=== PATIENT | male | born 1970 | race Caucasian/White ===

== ENCOUNTER 2019-12-15 07:03 | Inpatient (IN) | payer BC, OTHER ==
--- NOTE | 2019-12-15 07:23 | PDOC ---
History of Present Illness - General Chief Complaint: Chest Pain Stated Complaint: CHEST PAIN Time Seen by Provider: 12/15/19 07:20 - History of Present Illness Initial Comments: 12/15/19 07:20 49yo M hx HTN, gastric bypass presents to the ED after fall 6:30am this morning. Got out of bed, was looking for watch. Became lightheaded, things went dark, and he fell over to the side onto the bed. Denies injuries. Was confused for a few seconds afterwards but then back to baseline. Denies LOC. + epsigastric burning for weeks now and chest pressure since yesterday morning. Chest pressure started while he was at rest. Episodes of chest pressure last 3- 4 mins at a time and worse with exertion. Also reporting NB diarrhea for last 2 days with nausea. Reports 3-4 years ago had an abnormal nuclear stress test and got a cath at [facility] which was reportedly normal. Pt denies associated SOB, diaphoresis, headache, focal weakness/numbness, vomiting. No recent travel or immobility. Pt recently moved to the area, previously lived in [place]. Has no doctors in the area. DEnies smoking or drug use. Denies hx similar sxs. 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 Past History - Past Medical History Allergies/Adverse Reactions: Allergies Allergy/AdvReac Type Severity Reaction Status Date / Time No Known Allergies Allergy Verified 12/15/19 07:55 Home Medications: Ambulatory Orders Diltiazem HCl [Diltiazem 24Hr Cd] 180 mg PO DAILY 12/15/19 Irbesartan/Hydrochlorothiazide [Irbesartan-Hctz 150-12.5 mg Tb] 1 each PO DAILY 12/15/19 Levothyroxine [Synthroid -] 112 mcg PO DAILY 12/15/19 [place]-3/Dha/Epa/Fish Oil [[place] 3 500 Softgel] 1 each PO QID 12/15/19 Tamsulosin HCl [Flomax] 0.4 mg PO DAILY 12/15/19 Review of Systems - Review of Systems Comments:: 12/15/19 08:43 GENERAL/CONSTITUTIONAL: No fever or chills. No weakness. HEAD, EYES, EARS, NOSE AND THROAT: No change in vision. No ear pain or discharge. No sore throat. GASTROINTESTINAL: +nausea, diarrhea no vomiting, or constipation. GENITOURINARY: No dysuria, frequency, or change in urination. CARDIOVASCULAR: +chest pain. No shortness of breath. RESPIRATORY: No cough, wheezing, or hemoptysis. MUSCULOSKELETAL: No joint or muscle swelling or pain. No neck or back pain. SKIN: No rash NEUROLOGIC: No headache, vertigo, loss of consciousness, or change in strength/ sensation. ENDOCRINE: No increased thirst. No abnormal weight change. HEMATOLOGIC/LYMPHATIC: No anemia, easy bleeding, or history of blood clots. ALLERGIC/IMMUNOLOGIC: No hives or skin allergy. *Physical Exam - Physical Exam 12/15/19 08:47 GENERAL: Awake, alert, and fully oriented, in no acute distress HEAD: No signs of trauma EYES: PERRLA, EOMI, sclera anicteric, conjunctiva clear ENT: Oropharynx clear without exudates. Dry MM NECK: Normal ROM, supple, no lymphadenopathy, JVD, or masses LUNGS: Breath sounds equal, clear to auscultation bilaterally. No wheezes, and no crackles HEART: Tachycardic but regular to 106, normal S1 and S2, no murmurs, rubs or gallops ABDOMEN: Soft, nontender, normoactive bowel sounds. No guarding, no rebound. No masses EXTREMITIES: Normal range of motion, no edema. No clubbing or cyanosis. No cords, erythema, or tenderness NEUROLOGICAL: Normal speech, cranial nerves intact, equal strength and sensation b/l SKIN: Warm, Dry, normal turgor, no rashes or lesions noted. Heart Score/ECG Review - History History: Moderately suspicious - Electrocardiogram EKG: Non specific repolarization disturbance - Age Age: 45-65 - Risk Factors Based on the list above the patient has:: 1-2 risk factors - Troponin Troponin: </= normal limit - Score Heart Score - Total: 4 #1 12/15/19 08:48 Twelve-lead EKG was performed and reviewed by me. Sinus tachycardia, rate 106. Left axis deviation. No ST elevations. Hyperacute T waves. No previous EKGs to compare ED Treatment Course - LABORATORY CBC & Chemistry Diagram: 12/15/19 07:46 12/15/19 07:46 Medical Decision Making - Medical Decision Making 12/15/19 08:49 49yo M presents to the ED with pre-syncope as well as chest tightness, diarrhea Pt tachycardic to 100s Given pre-syncope, chest tightness, concern for arrhythmia vs acs vs PE vs dehydration Plan for labs including trop, dimer, CXR, and tele obs admission 12/15/19 10:05 Labs remarkable for Na 119, elevated LFTs, bili 5, lipase 1000, dimer >2000 On re-questioning, pt now admitting to drinking a bottle of wine every other day for a few months Reports he first tried wine 4 months ago, liked it and that's why he started drinking We have added on a lactic, hepatitis panel, etoh level, tylenol level Will obtain CTA chest to r/o PE and CTAP to eval for intrabd path Also RUQ US Will reassess 12/15/19 13:50 CTA neg for PE CTAP with no acute path - +hepatomegaly US negative Likely liver failure 2/2 etoh abuse. Hyponatremia possibly beer potomania? Case discussed with OLIVA Caicedo, pt admitted for syncope, liver failure, hyponatremia Case discussed in detail with admitting physician including history, physical exam and ancillary studies. Admitting physician has assumed care for the patient, will follow all pending diagnostics and will complete the evaluation and treatment. Discharge - Discharge Information Problems reviewed: Yes Clinical Impression/Diagnosis: Liver failure, Hyponatremia, Syncope Condition: Stable - Follow up/Referral - Patient Discharge Instructions - Post Discharge Activity
[2019-12-15 07:35] VITALS: BMI 31.1
[2019-12-15 08:15] LABS: BASO % 0.2 % (0-2.0); HEMATOCRIT 49.9 % (35.4-49); HEMOGLOBIN 17.1 GM/dl (11.7-16.9); LYMPH % 3.8 % (8-40); MCH 31.9 pg (25.7-33.7); MCHC 34.3 g/dl (32.0-35.9); MEAN CELL VOLUME 92.9 fl (80-96); PLATELET COUNT 391 K/MM3 (134-434); RBC 5.38 M/mm3 (4.00-5.60); RDW 14.4 % (11.9-15.9); WHITE BLOOD COUNT 13.9 K/mm3 (4.0-10.8)
[2019-12-15 08:25] LABS: ALBUMIN 3.9 g/dl (3.4-5.0); BILIRUBIN,TOTAL 4.9 mg/dl (0.2-1); CALCIUM 9.1 mg/dl (8.5-10); CREATININE 0.8 mg/dl (0.55-1.3); POTASSIUM 3.6 mmol/L (3.5-5.1); TOT PROT 6.6 g/dl (6.4-8.2)
[2019-12-15] MEDS ORDERED: SODIUM CHLORIDE 1,000 ML IV STA ×2 (08:37→09:43)
--- NOTE | 2019-12-15 15:09 | HP ---
CHIEF COMPLAINT: Epigastric-type pain PCP: Dr. Christina Martines, [facility] HISTORY OF PRESENT ILLNESS: 49 year-old male with a PMH of HTN, BPH, hypothyrodism, chronic back pain, gout , and s/p gastric bypass, presented to the ED after a fall 6:30am this morning. Got out of bed, was looking for watch. Became lightheaded, things went dark, and he fell over to the side onto the bed. Denies injuries. Was confused for a few seconds afterwards but then back to baseline. Denies LOC. Reports + epigastric burning for weeks now and chest pressure since yesterday morning. Chest pressure started while he was at rest. Episodes of chest pressure last 3- 4 mins at a time and worse with exertion. Also reporting non-bloody diarrhea for last 2 days with nausea. Reports 3-4 years ago had an abnormal nuclear stress test and got a cath at [facility] which was reportedly normal. Heavy NSAID user, takes ibuprofen 800mg q4h 4-6x per day for years to treat chronic back pain and gout. 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; recently moved to [place] ; 2-3 workouts per week, takes nutritional supplements Smoking: never Alcohol: 1-2 bottles wine every night Drugs: denies Allergies No Known Allergies Allergy (Verified 12/15/19 07:55) HOME MEDICATIONS: Home Medications Medication Instructions Recorded Diltiazem HCl [Diltiazem 24Hr Cd] 180 mg PO DAILY 12/15/19 Irbesartan/Hydrochlorothiazide 1 each PO DAILY 12/15/19 [Irbesartan-Hctz 150-12.5 mg Tb] Levothyroxine [Synthroid -] 112 mcg PO DAILY 12/15/19 [place]-3/Dha/Epa/Fish Oil [[place] 3 1 each PO QID 12/15/19 500 Softgel] Tamsulosin HCl [Flomax] 0.4 mg PO DAILY 12/15/19 REVIEW OF SYSTEMS CONSTITUTIONAL: Absent: fever, chills, diaphoresis, generalized weakness, malaise, loss of appetite, weight change HEENT: Absent: rhinorrhea, nasal congestion, throat pain, throat swelling, difficulty swallowing, mouth swelling, ear pain, eye pain, visual changes CARDIOVASCULAR: +near syncope, lightheadedness, epigastric pain Absent: chest pain, syncope, palpitations, irregular heart rate, lightheadedness , peripheral edema RESPIRATORY: Absent: cough, shortness of breath, dyspnea with exertion, orthopnea, wheezing, stridor, hemoptysis GASTROINTESTINAL: Absent: abdominal pain, abdominal distension, nausea, vomiting, diarrhea, constipation, melena, hematochezia GENITOURINARY: Absent: dysuria, frequency, urgency, hesitancy, hematuria, flank pain, genital pain MUSCULOSKELETAL: Absent: myalgia, arthralgia, joint swelling, back pain, neck pain SKIN: Absent: rash, itching, pallor HEMATOLOGIC/IMMUNOLOGIC: Absent: easy bleeding, easy bruising, lymphadenopathy, frequent infections ENDOCRINE: Absent: unexplained weight gain, unexplained weight loss, heat intolerance, cold intolerance NEUROLOGIC: Absent: headache, focal weakness or paresthesias, dizziness, unsteady gait, seizure, mental status changes, bladder or bowel incontinence PSYCHIATRIC: Absent: anxiety, depression, suicidal or homicidal ideation, hallucinations. PHYSICAL EXAMINATION Vital Signs - 24 hr 12/15/19 12/15/19 12/15/19 07:19 11:19 13:00 Temperature 98.2 F Pulse Rate 103 H Pulse Rate [ 94 H 93 H Apical] Respiratory 19 18 20 Rate Blood Pressure 143/94 Blood Pressure 129/76 121/80 [Arm] O2 Sat by Pulse 100 99 98 Oximetry (%) GENERAL: Awake, alert, and fully oriented, in no acute distress. HEAD: Normal with no signs of trauma. LUNGS: Breath sounds equal, clear to auscultation bilaterally. No wheezes, and no crackles. No accessory muscle use. HEART: Regular rate and rhythm, normal S1 and S2 ABDOMEN: Soft, nontender, not distended, normoactive bowel sounds, no guarding, no rebound tenderness; no tenderness over epigastrum MUSCULOSKELETAL: Normal range of motion at all joints. No bony deformities or tenderness. No CVA tenderness. UPPER EXTREMITIES: 2+ pulses, warm, well-perfused. No cyanosis. No clubbing. No peripheral edema. LOWER EXTREMITIES: 2+ pulses, warm, well-perfused. No calf tenderness. No peripheral edema. NEUROLOGICAL: Cranial nerves II-XII intact. Normal speech. Normal gait. Laboratory Results - last 24 hr 12/15/19 12/15/19 12/15/19 07:46 07:46 07:46 WBC 13.9 H RBC 5.38 Hgb 17.1 H Hct 49.9 H MCV 92.9 MCH 31.9 MCHC 34.3 RDW 14.4 Plt Count 391 MPV 8.0 Absolute Neuts (auto) 12.4 Neutrophils % 89.0 H Lymphocytes % 3.8 L Monocytes % 7.0 Eosinophils % 0.0 Basophils % 0.2 D-Dimer Sodium 119 L Potassium 3.6 Chloride 81 L Carbon Dioxide 26 Anion Gap 12 BUN 9.0 Creatinine 0.8 Est GFR (CKD-EPI)AfAm 121.57 Est GFR (CKD-EPI)NonAf 104.89 Random Glucose 150 H Lactic Acid Calcium 9.1 Total Bilirubin 4.9 H AST 1240 H ALT 955 H Alkaline Phosphatase 124 H Troponin I < 0.03 B-Natriuretic Peptide Total Protein 6.6 Albumin 3.9 Lipase Urine Color Urine Appearance Urine pH Urine Protein Urine Glucose (UA) Urine Ketones Urine Blood Urine Nitrite Urine Bilirubin Urine Urobilinogen Ur Leukocyte Esterase Urine RBC Acetaminophen Alcohol, Quantitative 12/15/19 12/15/19 12/15/19 07:46 07:46 07:46 WBC RBC Hgb Hct MCV MCH MCHC RDW Plt Count MPV Absolute Neuts (auto) Neutrophils % Lymphocytes % Monocytes % Eosinophils % Basophils % D-Dimer 2383 H Sodium Potassium Chloride Carbon Dioxide Anion Gap BUN Creatinine Est GFR (CKD-EPI)AfAm Est GFR (CKD-EPI)NonAf Random Glucose Lactic Acid Calcium Total Bilirubin AST ALT Alkaline Phosphatase Troponin I B-Natriuretic Peptide 127.0 H Cancelled Total Protein Albumin Lipase 1004 H Urine Color Urine Appearance Urine pH Urine Protein Urine Glucose (UA) Urine Ketones Urine Blood Urine Nitrite Urine Bilirubin Urine Urobilinogen Ur Leukocyte Esterase Urine RBC Acetaminophen Alcohol, Quantitative 12/15/19 12/15/19 12/15/19 09:58 10:00 10:00 WBC RBC Hgb Hct MCV MCH MCHC RDW Plt Count MPV Absolute Neuts (auto) Neutrophils % Lymphocytes % Monocytes % Eosinophils % Basophils % D-Dimer Sodium Potassium Chloride Carbon Dioxide Anion Gap BUN Creatinine Est GFR (CKD-EPI)AfAm Est GFR (CKD-EPI)NonAf Random Glucose Lactic Acid 1.1 Calcium Total Bilirubin AST ALT Alkaline Phosphatase Troponin I B-Natriuretic Peptide Total Protein Albumin Lipase Urine Color Urine Appearance Urine pH Urine Protein Urine Glucose (UA) Urine Ketones Urine Blood Urine Nitrite Urine Bilirubin Urine Urobilinogen Ur Leukocyte Esterase Urine RBC Acetaminophen <2.0 Alcohol, Quantitative < 3 12/15/19 11:50 WBC RBC Hgb Hct MCV MCH MCHC RDW Plt Count MPV Absolute Neuts (auto) Neutrophils % Lymphocytes % Monocytes % Eosinophils % Basophils % D-Dimer Sodium Potassium Chloride Carbon Dioxide Anion Gap BUN Creatinine Est GFR (CKD-EPI)AfAm Est GFR (CKD-EPI)NonAf Random Glucose Lactic Acid Calcium Total Bilirubin AST ALT Alkaline Phosphatase Troponin I B-Natriuretic Peptide Total Protein Albumin Lipase Urine Color Yellow Urine Appearance Clear Urine pH 7.0 Urine Protein Negative Urine Glucose (UA) Negative Urine Ketones Negative Urine Blood Trace-intact Urine Nitrite Negative Urine Bilirubin Negative Urine Urobilinogen 1.0 Ur Leukocyte Esterase Negative Urine RBC 0-2 Acetaminophen Alcohol, Quantitative ASSESSMENT/PLAN: 49 year-old male with a PMH significant for HTN, BPH, hypothyrodism, chronic back pain, gout, and s/p gastric bypass admitted for chest pain, hyponatremia, elevated lipase and liver function abnormalities. Heavy NSAID user. Epigastric-type chest pain --troponin neg x 1, two pending --ECG: no sign of acute ischemia --CXR unremarkable --Echo pending --CTA: negative for PE --stop all NSAIDS; protonix Pancreatitis --elevated lipase and MRCP shows stranding adjacent to head of pancreas --may be secondary to heavy alcohol use --received 2L NS in ED --thiamine, folic acid Hyponatremia --IV fluids Hyperbilirubinemia Elevated transaminases --no definite gallstones or biliary dilitation seen on CT --US: normal gallbladder, no intra or extrahepatic biliary duct dilitation; hepatomegaly, diffuse fatty liver Hypertension --BP stable --continue valsartan, diltiazem BPH --continue tamsulosin Hypothyroidism --continue levothyroxine FEN Fluids: 1/2 NS @ 125mL/hr Electrolytes: replete as indicated Nutrition: NPO Full code. Visit type - Emergency Visit Emergency Visit: Yes ED Registration Date: 12/15/19 Care time: The patient presented to the Emergency Department on the above date and was hospitalized for further evaluation of their emergent condition. - New Patient This patient is new to me today: Yes Date on this admission: 12/24/19 - Critical Care Critical Care patient: No
[2019-12-15] MEDS: VALSARTAN 80 MG TABLET (UD) PO SCH (16:28)
[2019-12-15 16:48] LABS: ACTIVATED PTT 35.2 SECONDS (25.2-36.5)
[2019-12-15 16:52] LABS: ALBUMIN 3.6 g/dl (3.4-5.0); BASO % 0.3 % (0-2.0); BILIRUBIN,DIRECT 1.5 mg/dL (0.0-0.2); BILIRUBIN,TOTAL 3.5 mg/dl (0.2-1); CALCIUM 8.8 mg/dl (8.5-10); CREATININE 0.8 mg/dl (0.55-1.3); EOS % 0.1 % (0-4.5); HEMATOCRIT 47.9 % (35.4-49); HEMOGLOBIN 16.2 GM/dl (11.7-16.9); INR 1.2 (0.82-1.09); LYMPH % 4.3 % (8-40); MAGNESIUM 1.5 mg/dL (1.8-2.4); MCHC 33.9 g/dl (32.0-35.9); MEAN CELL VOLUME 91.5 fl (80-96); MEAN PLT VOLUME 7.8 fl (7.5-11.1); MONO % 8.2 % (3.8-10.2); NEUT % 87.1 % (42.8-82.8); PLATELET COUNT 316 K/MM3 (134-434); POTASSIUM 3.6 mmol/L (3.5-5.1); PROTHROMBIN TIME (PATIENT) 13.4 SEC (10.2-13.0); RBC 5.24 M/mm3 (4.00-5.60); WHITE BLOOD COUNT 11.1 K/mm3 (4.0-10.8)
[2019-12-15] MEDS ORDERED: MAGNESIUM SULF 50% (8.12 MEQ/2 ML-1 GM VIAL) IVPB ONE (17:26)
[2019-12-15] MEDS ORDERED: SODIUM CHLORIDE 0.45% 1,000 ML IV SCH (17:30)
[2019-12-15] MEDS: ASPIRIN 81 MG CHEWABLE TABLETS PO SCH (18:18)
[2019-12-15 19:32] LABS: GAMMA GLUTAMYL TRANSPEPTIDASE 153 U/L (5-85); LIPASE 932 U/L (73-393)
[2019-12-15] MEDS ORDERED: guaiFENesin 200 MG/10 ML 10 ML UNIT-DOSE CUPS PO PRN (20:41)
[2019-12-15] MEDS: THIAMINE HCL 100 MG TABLET (FP) PO SCH (21:30)
[2019-12-15] MEDS: FOLIC ACID 1 MG TABLET (FP) PO SCH (21:30)
[2019-12-15] MEDS: PANTOPRAZOLE SODIUM 40 MG VIAL IVPUSH SCH (21:30)
[2019-12-16] MEDS: LEVOTHYROXINE NA 112 MCG TABLET (FP) PO SCH (06:19)
[2019-12-16] MEDS: TAMSULOSIN HCL 0.4 MG CAP PO SCH (07:35)
[2019-12-16] MEDS: ASPIRIN 81 MG CHEWABLE TABLETS PO SCH (09:34)
[2019-12-16] MEDS: THIAMINE HCL 100 MG TABLET (FP) PO SCH (09:35)
[2019-12-16] MEDS: VALSARTAN 80 MG TABLET (UD) PO SCH (09:36)
--- NOTE | 2019-12-16 10:36 | EKG ---
Test Reason : Blood Pressure : / mmHG Vent. Rate : 106 BPM Atrial Rate : 106 BPM P-R Int : 152 ms QRS Dur : 092 ms QT Int : 330 ms P-R-T Axes : 046 -46 052 degrees QTc Int : 438 ms SINUS TACHYCARDIA LEFT ANTERIOR FASCICULAR BLOCK ABNORMAL ECG NO PREVIOUS ECGS AVAILABLE Confirmed by YANNICK PAULSON MD ([id number]) on 12/16/2019 10:36:05 AM Referred By: Confirmed By:YANNICK PAULSON MD
[2019-12-16] MEDS: PANTOPRAZOLE SODIUM 40 MG VIAL IVPUSH SCH ×2 (10:37→21:28)
[2019-12-16] MEDS: FOLIC ACID 1 MG TABLET (FP) PO SCH (12:35)
[2019-12-16 12:50] LABS: BASO % 1.1 % (0-2.0); EOS % 0.1 % (0-4.5); HEMATOCRIT 44.7 % (35.4-49); HEMOGLOBIN 14.7 GM/dl (11.7-16.9); LYMPH % 10.1 % (8-40); MCH 30.5 pg (25.7-33.7); MCHC 32.9 g/dl (32.0-35.9); MEAN CELL VOLUME 92.8 fl (80-96); MEAN PLT VOLUME 7.6 fl (7.5-11.1); MONO % 7.6 % (3.8-10.2); NEUT % 81.1 % (42.8-82.8); PLATELET COUNT 218 K/MM3 (134-434); RBC 4.82 M/mm3 (4.00-5.60); RDW 14.6 % (11.9-15.9); WHITE BLOOD COUNT 9.7 K/mm3 (4.0-10.8)
[2019-12-16 12:57] LABS: INR 1.06 (0.82-1.09); PROTHROMBIN TIME (PATIENT) 11.8 SEC (10.2-13.0)
[2019-12-16 13:10] LABS: ALBUMIN 3.1 g/dl (3.4-5.0); BILIRUBIN,DIRECT 0.8 mg/dL (0.0-0.2); BILIRUBIN,TOTAL 2.2 mg/dl (0.2-1); CALCIUM 8.2 mg/dl (8.5-10); CREATININE 0.9 mg/dl (0.55-1.3); MAGNESIUM 1.8 mg/dL (1.8-2.4); POTASSIUM 4.1 mmol/L (3.5-5.1); TOT PROT 5.3 g/dl (6.4-8.2)
--- NOTE | 2019-12-16 14:39 | PN ---
Physical Exam: SUBJECTIVE: Patient seen and examined OBJECTIVE: Vital Signs Period Temp Pulse Resp BP Sys/[place] Pulse Ox Last 24 Hr 97.9 F-99.4 F 80-109 16-19 112-137/65-75 97-100 GENERAL: Awake, alert, and fully oriented, in no acute distress. HEAD: Normal with no signs of trauma. LUNGS: Breath sounds equal, clear to auscultation bilaterally. No wheezes, and no crackles. No accessory muscle use. HEART: Regular rate and rhythm, normal S1 and S2 ABDOMEN: Soft, nontender, not distended, normoactive bowel sounds, no guarding, no rebound tenderness; no tenderness over epigastrum MUSCULOSKELETAL: Normal range of motion at all joints. No bony deformities or tenderness. No CVA tenderness. UPPER EXTREMITIES: 2+ pulses, warm, well-perfused. No cyanosis. No clubbing. No peripheral edema. LOWER EXTREMITIES: 2+ pulses, warm, well-perfused. No calf tenderness. No peripheral edema. NEUROLOGICAL: Cranial nerves II-XII intact. Normal speech. Normal gait. No s/s of alcohol withdrawal. Laboratory Results - last 24 hr 12/15/19 12/15/19 12/15/19 10:00 14:00 16:00 WBC RBC Hgb Hct MCV MCH MCHC RDW Plt Count MPV Absolute Neuts (auto) Neutrophils % Lymphocytes % Monocytes % Eosinophils % Basophils % PT with INR INR PTT (Actin FS) Sodium Potassium Chloride Carbon Dioxide Anion Gap BUN Creatinine Est GFR (CKD-EPI)AfAm Est GFR (CKD-EPI)NonAf Random Glucose Lactic Acid 1.1 Calcium Magnesium Total Bilirubin Direct Bilirubin GGT AST ALT Alkaline Phosphatase Ammonia Creatine Kinase Creatine Kinase Index CK-MB (CK-2) Troponin I Total Protein Albumin Lipase Hep A IgM Ab Confirm Negative Hep Bs Antigen Negative Hep B Core IgM Ab Negative Hepatitis C Ab (EIA) 0.1 Blood Type O NEGATIVE Antibody Screen 12/15/19 12/15/19 12/15/19 16:00 16:00 16:00 WBC RBC Hgb Hct MCV MCH MCHC RDW Plt Count MPV Absolute Neuts (auto) Neutrophils % Lymphocytes % Monocytes % Eosinophils % Basophils % PT with INR 13.4 H INR 1.20 PTT (Actin FS) 35.2 Sodium Potassium Chloride Carbon Dioxide Anion Gap BUN Creatinine Est GFR (CKD-EPI)AfAm Est GFR (CKD-EPI)NonAf Random Glucose Lactic Acid Calcium Magnesium Total Bilirubin Direct Bilirubin GGT AST ALT Alkaline Phosphatase Ammonia 42.80 H Creatine Kinase Creatine Kinase Index CK-MB (CK-2) Troponin I Total Protein Albumin Lipase Hep A IgM Ab Confirm Hep Bs Antigen Hep B Core IgM Ab Hepatitis C Ab (EIA) Blood Type O NEGATIVE Antibody Screen Negative 12/15/19 12/15/19 12/15/19 16:00 16:00 16:00 WBC 11.1 H RBC 5.24 Hgb 16.2 Hct 47.9 MCV 91.5 MCH 31.0 MCHC 33.9 RDW 14.0 Plt Count 316 MPV 7.8 Absolute Neuts (auto) 9.7 Neutrophils % 87.1 H Lymphocytes % 4.3 L Monocytes % 8.2 Eosinophils % 0.1 D Basophils % 0.3 PT with INR INR PTT (Actin FS) Sodium 124 L Potassium 3.6 Chloride 89 L Carbon Dioxide 25 Anion Gap 10 BUN 8.0 Creatinine 0.8 Est GFR (CKD-EPI)AfAm 121.57 Est GFR (CKD-EPI)NonAf 104.89 Random Glucose 112 H Lactic Acid Calcium 8.8 Magnesium 1.5 L Total Bilirubin 3.5 H Direct Bilirubin 1.5 H GGT 153 H AST 770 H ALT 760 H Alkaline Phosphatase 110 D Ammonia Creatine Kinase Creatine Kinase Index CK-MB (CK-2) Troponin I < 0.02 Total Protein 6.0 L Albumin 3.6 Lipase 932 H Hep A IgM Ab Confirm Hep Bs Antigen Hep B Core IgM Ab Hepatitis C Ab (EIA) Blood Type Antibody Screen 12/15/19 12/15/19 12/16/19 16:00 16:00 02:00 WBC RBC Hgb Hct MCV MCH MCHC RDW Plt Count MPV Absolute Neuts (auto) Neutrophils % Lymphocytes % Monocytes % Eosinophils % Basophils % PT with INR INR PTT (Actin FS) Sodium Potassium Chloride Carbon Dioxide Anion Gap BUN Creatinine Est GFR (CKD-EPI)AfAm Est GFR (CKD-EPI)NonAf Random Glucose Lactic Acid Calcium Magnesium Total Bilirubin Direct Bilirubin GGT AST ALT Alkaline Phosphatase Ammonia Creatine Kinase 515 H 309 H Creatine Kinase Index 1.6 1.1 CK-MB (CK-2) 8.3 H 3.7 H Troponin I < 0.02 Total Protein Albumin Lipase Cancelled Hep A IgM Ab Confirm Hep Bs Antigen Hep B Core IgM Ab Hepatitis C Ab (EIA) Blood Type Antibody Screen 12/16/19 12/16/19 12/16/19 12:45 12:45 12:45 WBC 9.7 RBC 4.82 Hgb 14.7 Hct 44.7 MCV 92.8 MCH 30.5 MCHC 32.9 RDW 14.6 Plt Count 218 D MPV 7.6 Absolute Neuts (auto) 7.9 Neutrophils % 81.1 Lymphocytes % 10.1 D Monocytes % 7.6 Eosinophils % 0.1 Basophils % 1.1 D PT with INR 11.8 INR 1.06 PTT (Actin FS) Sodium 128 L Potassium 4.1 Chloride 96 L Carbon Dioxide 28 Anion Gap 4 L BUN 7.0 Creatinine 0.9 Est GFR (CKD-EPI)AfAm 115.83 Est GFR (CKD-EPI)NonAf 99.94 Random Glucose 104 Lactic Acid Calcium 8.2 L Magnesium 1.8 Total Bilirubin 2.2 H Direct Bilirubin 0.8 H GGT AST 290 H ALT 440 H Alkaline Phosphatase 89 D Ammonia Creatine Kinase Creatine Kinase Index CK-MB (CK-2) Troponin I Total Protein 5.3 L Albumin 3.1 L Lipase Hep A IgM Ab Confirm Hep Bs Antigen Hep B Core IgM Ab Hepatitis C Ab (EIA) Blood Type Antibody Screen Active Medications Generic Name Dose Route Start Last Admin Trade Name Freq PRN Reason Stop Dose Admin Aspirin 81 mg 12/15/19 18:00 12/16/19 09:34 Asa - PO 81 mg DAILY CISCO Administration Diltiazem HCl 180 mg 12/15/19 15:30 12/16/19 09:36 Cardizem Cd - PO 180 mg DAILY CISCO Administration Folic Acid 1 mg 12/15/19 19:00 12/16/19 12:35 Folic Acid - PO 1 mg DAILY CISCO Administration Guaifenesin 10 ml 12/15/19 20:41 12/15/19 21:30 Robitussin - PO 10 ml Q6H PRN Administration COUGH Sodium Chloride 1,000 mls @ 125 mls/hr 12/15/19 17:30 12/15/19 18:19 1/2 Normal Saline IV 125 mls/hr ASDIR CISCO Administration Levothyroxine Sodium 112 mcg 12/16/19 07:00 12/16/19 06:19 Synthroid - PO 112 mcg DAILY@0700 CISCO Administration Pantoprazole Sodium 40 mg 12/15/19 22:00 12/16/19 10:37 Protonix Iv IVPUSH 40 mg BID CISCO Administration Tamsulosin HCl 0.4 mg 12/16/19 08:30 12/16/19 07:35 Flomax - PO 0.4 mg DAILY@0830 CISCO Administration Thiamine HCl 100 mg 12/15/19 19:00 12/16/19 09:35 Vitamin B1 - PO 100 mg DAILY CISCO Administration Valsartan 80 mg 12/15/19 15:30 12/16/19 09:36 Diovan - PO 80 mg DAILY CISCO Administration ASSESSMENT/PLAN: 49 year-old male with a PMH significant for HTN, BPH, hypothyrodism, chronic back pain, gout, and s/p gastric bypass admitted for chest pain, hyponatremia, elevated lipase and liver function abnormalities. Heavy NSAID user. Epigastric-type chest pain --troponin neg x 3 --ECG: no sign of acute ischemia --CXR unremarkable --CTA: negative for PE --stop all NSAIDS; protonix Pancreatitis --likely secondary to alcohol use --lV fluids --thiamine, folic acid Hyponatremia --improving with IV fluids Hyperbilirubinemia Elevated transaminases --no definite gallstones or biliary dilitation seen on CT --US: normal gallbladder, no intra or extrahepatic biliary duct dilitation; hepatomegaly, diffuse fatty liver --LFTs trending down Hypertension --BP stable --continue valsartan, diltiazem BPH --continue tamsulosin Hypothyroidism --continue levothyroxine FEN Fluids: 1/2 NS @ 125mL/hr Electrolytes: replete as indicated Nutrition: clears Fall risk assessment --incident reported in MRI suite, patient asked to be removed from MRI machine and he self-propelled himself off the table; he relates to this provider that he stood up and took a few steps forward to get his balance; patient denies falling, slipping, hitting his head, knees, or elbows, and insists he remained upright at all times --physical exam unremarkable --because patient on ASA, fall risk protocol indicates CT head which was performed; results reviewed, no acute findings Visit type - Emergency Visit Emergency Visit: Yes ED Registration Date: 12/15/19 Care time: The patient presented to the Emergency Department on the above date and was hospitalized for further evaluation of their emergent condition. - New Patient This patient is new to me today: No - Critical Care Critical Care patient: No
--- NOTE | 2019-12-16 14:51 | CON.CARD ---
Consult Consult Specialty:: Cardiology Referred by:: Hospitalist Medicine Reason for Consultation:: Chest pain - History of Present Illness Chief Complaint: Chest pain History of Present Illness: 49yo M hx HTN, gastric bypass, hypothyroidism presents with chest pressure upon awakening with positional dizziness since resolved. He denies exertional component and denies LOBATO, true syncope, palpitations, orthopnea, PNE or LE edema. Per ED notes, reports 3-4 years ago had an abnormal nuclear stress test and got a cath at [facility] which was reportedly normal. 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 - History Source History Provided By: Patient Limitations to Obtaining History: No Limitations - Alcohol/Substance Use Hx Alcohol Use: Yes (occasional) - Smoking History Smoking history: Never smoked Have you smoked in the past 12 months: No Aproximately how many cigarettes per day: 0 Home Medications - Allergies Allergies/Adverse Reactions: Allergies Allergy/AdvReac Type Severity Reaction Status Date / Time No Known Allergies Allergy Verified 12/15/19 07:55 - Home Medications Home Medications: Ambulatory Orders Diltiazem HCl [Diltiazem 24Hr Cd] 180 mg PO DAILY 12/15/19 Irbesartan/Hydrochlorothiazide [Irbesartan-Hctz 150-12.5 mg Tb] 1 each PO DAILY 12/15/19 Levothyroxine [Synthroid -] 112 mcg PO DAILY 12/15/19 [place]-3/Dha/Epa/Fish Oil [[place] 3 500 Softgel] 1 each PO QID 12/15/19 Tamsulosin HCl [Flomax] 0.4 mg PO DAILY 12/15/19 Review of Systems - Review of Systems Cardiovascular: reports: Chest Pain Neurological: reports: Dizziness Vital Signs: Vital Signs Temperature 98.6 F 12/16/19 14:07 Pulse Rate 90 12/16/19 14:07 Respiratory Rate 18 12/16/19 14:07 Blood Pressure 112/65 12/16/19 14:07 O2 Sat by Pulse Oximetry (%) 97 12/16/19 14:07 Constitutional: Yes: No Distress, Calm Neck: Yes: Supple Respiratory: Yes: Regular, CTA Bilaterally Gastrointestinal: Yes: Normal Bowel Sounds, Soft Cardiovascular: Yes: Regular Rate and Rhythm JVD: No Carotid Bruit: No Heart Sounds: Yes: S1, S2 Edema: No - Other Data Labs, Other Data: CBC, BMP 12/16/19 12:45 12/16/19 12:45 INR, PTT INR 1.06 (0.82-1.09) 12/16/19 12:45 Troponin, BNP 12/15/19 12/16/19 16:00 02:00 Troponin I < 0.02 < 0.02 Troponin, BNP 12/15/19 12/16/19 16:00 02:00 Troponin I < 0.[address] @ 106 LAD Imaging - Results Chest X-ray: Report Reviewed (NAD) Cat Scan: Report Reviewed (Chest CTA: Neg for PE) Ultrasound: Report Reviewed (US: Fatty liver) MRI: Pending Problem List - Problems (1) Chest pain Code(s): R07.9 - CHEST PAIN, UNSPECIFIED Qualifiers: Chest pain type: unspecified Qualified Code(s): R07.9 - Chest pain, unspecified (2) Hypertension Code(s): I10 - ESSENTIAL (PRIMARY) HYPERTENSION Qualifiers: Hypertension type: essential hypertension Qualified Code(s): I10 - Essential (primary) hypertension (3) Cholestasis Code(s): K83.1 - OBSTRUCTION OF BILE DUCT (4) Elevated lipase Code(s): R74.8 - ABNORMAL LEVELS OF OTHER SERUM ENZYMES (5) Hyponatremia Code(s): E87.1 - HYPO-OSMOLALITY AND HYPONATREMIA (6) Hypothyroidism Code(s): E03.9 - HYPOTHYROIDISM, UNSPECIFIED Qualifiers: Hypothyroidism type: unspecified Qualified Code(s): E03.9 - Hypothyroidism , unspecified Assessment/Plan 1. Chest pain ruled out for PE, [place] 2. Hypertension 3. Hypothyroidism 4. Sinus tachycardia since resolved 5. Hyponatremia improving 6. Cholestasis and elevated lipase 7. Positional near syncope resolved P:1. F/u MRCP, LFTs and lipase trending downwards 2. Continue Cardizem CD 180 qd, [place] 150/12.5 qd or equivalent 3. Stress echo may be performed as outpatient to exclude structural heart disease 4. Thank you for consultative opportunity
[2019-12-16] MEDS ORDERED: DEXTROSE 5%-NORMAL SALINE 1,000 ML IV SCH (17:45)
[2019-12-16 18:28] LABS: CALCIUM 8.2 mg/dl (8.5-10); CREATININE 0.9 mg/dl (0.55-1.3); MAGNESIUM 1.8 mg/dL (1.8-2.4); POTASSIUM 3.4 mmol/L (3.5-5.1)
[2019-12-17] MEDS: LEVOTHYROXINE NA 112 MCG TABLET (FP) PO SCH (06:46)
[2019-12-17] MEDS: TAMSULOSIN HCL 0.4 MG CAP PO SCH (08:30)
[2019-12-17] MEDS: THIAMINE HCL 100 MG TABLET (FP) PO SCH (09:00)
[2019-12-17] MEDS: FOLIC ACID 1 MG TABLET (FP) PO SCH (09:00)
[2019-12-17] MEDS: VALSARTAN 80 MG TABLET (UD) PO SCH (09:05)
[2019-12-17] MEDS: ASPIRIN 81 MG CHEWABLE TABLETS PO SCH (09:05)
--- NOTE | 2019-12-17 09:34 | PN ---
Physical Exam: SUBJECTIVE: Patient seen and examined OBJECTIVE: Vital Signs Period Temp Pulse Resp BP Sys/[place] Pulse Ox Last 24 Hr 98.6 F-99.5 F 80-103 16-19 94-119/50-72 97-99 GENERAL: Awake, alert, and fully oriented, in no acute distress. HEAD: Normal with no signs of trauma. LUNGS: Breath sounds equal, clear to auscultation bilaterally. No wheezes, and no crackles. No accessory muscle use. HEART: Regular rate and rhythm, normal S1 and S2 ABDOMEN: Soft, nontender, not distended, normoactive bowel sounds, no guarding, no rebound tenderness; no tenderness over epigastrum MUSCULOSKELETAL: Normal range of motion at all joints. No bony deformities or tenderness. No CVA tenderness. UPPER EXTREMITIES: 2+ pulses, warm, well-perfused. No cyanosis. No clubbing. No peripheral edema. LOWER EXTREMITIES: 2+ pulses, warm, well-perfused. No calf tenderness. No peripheral edema. NEUROLOGICAL: Cranial nerves II-XII intact. Normal speech. Normal gait. No s/s of alcohol withdrawal. Laboratory Results - last 24 hr 12/16/19 12/16/19 12/16/19 12:45 12:45 12:45 WBC 9.7 RBC 4.82 Hgb 14.7 Hct 44.7 MCV 92.8 MCH 30.5 MCHC 32.9 RDW 14.6 Plt Count 218 D MPV 7.6 Absolute Neuts (auto) 7.9 Neutrophils % 81.1 Lymphocytes % 10.1 D Monocytes % 7.6 Eosinophils % 0.1 Basophils % 1.1 D PT with INR 11.8 INR 1.06 Sodium 128 L Potassium 4.1 Chloride 96 L Carbon Dioxide 28 Anion Gap 4 L BUN 7.0 Creatinine 0.9 Est GFR (CKD-EPI)AfAm 115.83 Est GFR (CKD-EPI)NonAf 99.94 POC Glucometer Random Glucose 104 Calcium 8.2 L Magnesium 1.8 Total Bilirubin 2.2 H Direct Bilirubin 0.8 H AST 290 H ALT 440 H Alkaline Phosphatase 89 D Total Protein 5.3 L Albumin 3.1 L Lipase 12/16/19 12/16/19 12/16/19 17:40 17:40 23:30 WBC RBC Hgb Hct MCV MCH MCHC RDW Plt Count MPV Absolute Neuts (auto) Neutrophils % Lymphocytes % Monocytes % Eosinophils % Basophils % PT with INR INR Sodium 127 L Potassium 3.4 L Chloride 95 L Carbon Dioxide 27 Anion Gap 5 L BUN 9.0 Creatinine 0.9 Est GFR (CKD-EPI)AfAm 115.83 Est GFR (CKD-EPI)NonAf 99.94 POC Glucometer 118 Random Glucose 103 Calcium 8.2 L Magnesium 1.8 Total Bilirubin Direct Bilirubin AST ALT Alkaline Phosphatase Total Protein Albumin Lipase 327 12/17/19 05:56 WBC RBC Hgb Hct MCV MCH MCHC RDW Plt Count MPV Absolute Neuts (auto) Neutrophils % Lymphocytes % Monocytes % Eosinophils % Basophils % PT with INR INR Sodium Potassium Chloride Carbon Dioxide Anion Gap BUN Creatinine Est GFR (CKD-EPI)AfAm Est GFR (CKD-EPI)NonAf POC Glucometer 117 Random Glucose Calcium Magnesium Total Bilirubin Direct Bilirubin AST ALT Alkaline Phosphatase Total Protein Albumin Lipase Active Medications Generic Name Dose Route Start Last Admin Trade Name Freq PRN Reason Stop Dose Admin Aspirin 81 mg 12/15/19 18:00 12/16/19 09:34 Asa - PO 81 mg DAILY CISCO Administration Diltiazem HCl 180 mg 12/15/19 15:30 12/16/19 09:36 Cardizem Cd - PO 180 mg DAILY CISCO Administration Folic Acid 1 mg 12/15/19 19:00 12/16/19 12:35 Folic Acid - PO 1 mg DAILY CISCO Administration Guaifenesin 10 ml 12/15/19 20:41 12/15/19 21:30 Robitussin - PO 10 ml Q6H PRN Administration COUGH Dextrose/Sodium Chloride 1,000 mls @ 125 mls/hr 12/16/19 17:45 12/16/19 18:05 D5-Ns - IV 125 mls/hr ASDIR CISCO Administration Levothyroxine Sodium 112 mcg 12/16/19 07:00 12/17/19 06:46 Synthroid - PO 112 mcg DAILY@0700 CISCO Administration Pantoprazole Sodium 40 mg 12/15/19 22:00 12/16/19 21:28 Protonix Iv IVPUSH 40 mg BID CISCO Administration Tamsulosin HCl 0.4 mg 12/16/19 08:30 12/16/19 07:35 Flomax - PO 0.4 mg DAILY@0830 CISCO Administration Thiamine HCl 100 mg 12/15/19 19:00 12/16/19 09:35 Vitamin B1 - PO 100 mg DAILY CISCO Administration Valsartan 80 mg 12/15/19 15:30 12/16/19 09:36 Diovan - PO 80 mg DAILY CISCO Administration ASSESSMENT/PLAN: 49 year-old male with a PMH significant for HTN, BPH, hypothyrodism, chronic back pain, gout, and s/p gastric bypass admitted for chest pain, hyponatremia, elevated lipase and liver function abnormalities. Heavy NSAID user. Epigastric-type chest pain --troponin neg x 3 --ECG: no sign of acute ischemia --CXR unremarkable --CTA: negative for PE --stop all NSAIDS; protonix Pancreatitis --likely secondary to alcohol use --clinically improved, pain resolved\ --thiamine, folic acid Hyponatremia --improving Hyperbilirubinemia Elevated transaminases --no definite gallstones or biliary dilitation seen on CT --US: normal gallbladder, no intra or extrahepatic biliary duct dilitation; hepatomegaly, diffuse fatty liver --LFTs continue to trend down Hypertension --BP stable --continue valsartan, diltiazem BPH --continue tamsulosin Hypothyroidism --continue levothyroxine FEN Fluids: PO intake adequate Electrolytes: replete as indicated Nutrition: regular Visit type - Emergency Visit Emergency Visit: Yes ED Registration Date: 12/15/19 Care time: The patient presented to the Emergency Department on the above date and was hospitalized for further evaluation of their emergent condition. - New Patient This patient is new to me today: No - Critical Care Critical Care patient: No
[2019-12-17] MEDS: PANTOPRAZOLE SODIUM 40 MG VIAL IVPUSH SCH (10:07)
[2019-12-17 10:36] LABS: INR 1.04 (0.82-1.09); PROTHROMBIN TIME (PATIENT) 11.6 SEC (10.2-13.0)
[2019-12-17 10:44] LABS: ALBUMIN 2.9 g/dl (3.4-5.0); BILIRUBIN,DIRECT 0.8 mg/dL (0.0-0.2); BILIRUBIN,TOTAL 1.7 mg/dl (0.2-1); CALCIUM 7.7 mg/dl (8.5-10); CREATININE 0.8 mg/dl (0.55-1.3); MAGNESIUM 1.7 mg/dL (1.8-2.4); POTASSIUM 3.4 mmol/L (3.5-5.1); TOT PROT 5.3 g/dl (6.4-8.2)
[2019-12-17 11:13] LABS: BASO % 0.3 % (0-2.0); EOS % 1.4 % (0-4.5); HEMATOCRIT 38.5 % (35.4-49); HEMOGLOBIN 12.9 GM/dl (11.7-16.9); MCH 31.3 pg (25.7-33.7); MCHC 33.5 g/dl (32.0-35.9); MEAN CELL VOLUME 93.5 fl (80-96); MEAN PLT VOLUME 8.6 fl (7.5-11.1); MONO % 8.4 % (3.8-10.2); NEUT % 77.9 % (42.8-82.8); PLATELET COUNT 229 K/MM3 (134-434); RBC 4.12 M/mm3 (4.00-5.60); WHITE BLOOD COUNT 10.2 K/mm3 (4.0-10.8)
[2019-12-17 14:08] VITALS: BP 139/76; PULSE 81; TEMP 98.1
--- NOTE | 2019-12-17 16:48 | DS ---
Physical Exam: SUBJECTIVE: Patient seen and examined OBJECTIVE: Vital Signs Period Temp Pulse Resp BP Sys/[place] Pulse Ox Last 24 Hr 98.1 F-99.5 F 80-103 16-19 94-139/50-76 98-100 PHYSICAL EXAM GENERAL: Awake, alert, and fully oriented, in no acute distress. HEAD: Normal with no signs of trauma. LUNGS: Breath sounds equal, clear to auscultation bilaterally. No wheezes, and no crackles. No accessory muscle use. HEART: Regular rate and rhythm, normal S1 and S2 ABDOMEN: Soft, nontender, not distended, normoactive bowel sounds, no guarding, no rebound tenderness; no tenderness over epigastrum MUSCULOSKELETAL: Normal range of motion at all joints. No bony deformities or tenderness. No CVA tenderness. UPPER EXTREMITIES: 2+ pulses, warm, well-perfused. No cyanosis. No clubbing. No peripheral edema. LOWER EXTREMITIES: 2+ pulses, warm, well-perfused. No calf tenderness. No peripheral edema. NEUROLOGICAL: Cranial nerves II-XII intact. Normal speech. Normal gait. No s/s of alcohol withdrawal. LABS Laboratory Results - last 24 hr 12/16/19 12/16/19 12/16/19 17:40 17:40 23:30 WBC RBC Hgb Hct MCV MCH MCHC RDW Plt Count MPV Absolute Neuts (auto) Neutrophils % Lymphocytes % Monocytes % Eosinophils % Basophils % PT with INR INR Sodium 127 L Potassium 3.4 L Chloride 95 L Carbon Dioxide 27 Anion Gap 5 L BUN 9.0 Creatinine 0.9 Est GFR (CKD-EPI)AfAm 115.83 Est GFR (CKD-EPI)NonAf 99.94 POC Glucometer 118 Random Glucose 103 Calcium 8.2 L Magnesium 1.8 Total Bilirubin Direct Bilirubin AST ALT Alkaline Phosphatase Total Protein Albumin Lipase 327 12/17/19 12/17/19 12/17/19 05:56 10:00 10:00 WBC 10.2 RBC 4.12 Hgb 12.9 Hct 38.5 MCV 93.5 MCH 31.3 MCHC 33.5 RDW 15.0 Plt Count 229 MPV 8.6 D Absolute Neuts (auto) 8.0 Neutrophils % 77.9 Lymphocytes % 12.0 Monocytes % 8.4 Eosinophils % 1.4 D Basophils % 0.3 PT with INR 11.6 INR 1.04 Sodium Potassium Chloride Carbon Dioxide Anion Gap BUN Creatinine Est GFR (CKD-EPI)AfAm Est GFR (CKD-EPI)NonAf POC Glucometer 117 Random Glucose Calcium Magnesium Total Bilirubin Direct Bilirubin AST ALT Alkaline Phosphatase Total Protein Albumin Lipase 12/17/19 10:00 WBC RBC Hgb Hct MCV MCH MCHC RDW Plt Count MPV Absolute Neuts (auto) Neutrophils % Lymphocytes % Monocytes % Eosinophils % Basophils % PT with INR INR Sodium 132 L Potassium 3.4 L Chloride 99 Carbon Dioxide 23 Anion Gap 10 BUN 8.0 Creatinine 0.8 Est GFR (CKD-EPI)AfAm 121.57 Est GFR (CKD-EPI)NonAf 104.89 POC Glucometer Random Glucose 90 Calcium 7.7 L Magnesium 1.7 L Total Bilirubin 1.7 H Direct Bilirubin 0.8 H AST 140 H ALT 276 H Alkaline Phosphatase 84 Total Protein 5.3 L Albumin 2.9 L Lipase HOSPITAL COURSE: Date of Admission:12/15/19 Date of Discharge: 12/17/19 Pre hospital course 49 year-old male with a PMH of HTN, BPH, hypothyrodism, chronic back pain, gout , and s/p gastric bypass, presented to the ED after a fall 6:30am this morning. Got out of bed, was looking for watch. Became lightheaded, things went dark, and he fell over to the side onto the bed. Denies injuries. Was confused for a few seconds afterwards but then back to baseline. Denies LOC. Reports + epigastric burning for weeks now and chest pressure since yesterday morning. Chest pressure started while he was at rest. Episodes of chest pressure last 3- 4 mins at a time and worse with exertion. Also reporting non-bloody diarrhea for last 2 days with nausea. Reports 3-4 years ago had an abnormal nuclear stress test and got a cath at [facility] which was reportedly normal. Heavy NSAID user, takes ibuprofen 800mg q4h 4-6x per day for years to treat chronic back pain and gout. ER course (1) WBC 13.9k (2) Na 119 (3) Total bili 4.9, AST/ALT/Alk phos 1240/955/124 (4) D-dimer 2383 Subsequent hospital course 49 year-old male with a PMH significant for HTN, BPH, hypothyrodism, chronic back pain, gout, and s/p gastric bypass admitted for chest pain, hyponatremia, elevated lipase and liver function abnormalities. Heavy NSAID user. Epigastric-type chest pain --troponin neg x 3 --ECG: no sign of acute ischemia --CXR unremarkable --CTA: negative for PE --stop all NSAIDS; protonix --recommend stress echo as outpatient Pancreatitis --likely secondary to alcohol use --clinically improved, pain resolved --thiamine, folic acid Hyponatremia --resolved with IV fluids Hyperbilirubinemia Elevated transaminases --no definite gallstones or biliary dilitation seen on CT --US: normal gallbladder, no intra or extrahepatic biliary duct dilitation; hepatomegaly, diffuse fatty liver --LFTs continued to trend down Hypertension --BP stable --continued valsartan, diltiazem BPH --continued tamsulosin Hypothyroidism --continued levothyroxine Minutes to complete discharge: 35 Discharge Summary Problems reviewed: Yes Reason For Visit: ABNORMAL LIVER FUNCTION TESTS / SYNCOPE Current Active Problems Chest pain (Acute) Cholestasis (Acute) Elevated lipase (Acute) Hypertension (Acute) Hyponatremia (Acute) Hypothyroidism (Acute) Liver failure (Acute) Syncope (Acute) Condition: Improved - Instructions Diet, Activity, Other Instructions: You indicated 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 It is very important that you follow up with either a gastroenteroloigst or a primary care provider within one week of your discharge. You will need to have blood work done to check your sodium levels and your liver function. Contact information for the [facility] is enclosed. Advance your diet slowly, eat only those foods that agree with you. Stay well hydrated. Avoid alcohol. Return to the emergency department for any new or worsening symptoms. Four prescriptions have been sent to your pharmacy at your request. Referrals: Abdi Sanderson MD [Staff Physician] - 1 Week Disposition: HOME - Home Medications Comprehensive Discharge Medication List: Ambulatory Orders [place]-3/Dha/Epa/Fish Oil [[place] 3 500 Softgel] 1 each PO QID 12/15/19 Diltiazem Cd [Cardizem Cd -] 180 mg PO DAILY #30 cap.cd.24h 12/17/19 Levothyroxine [Synthroid -] 112 mcg PO DAILY@0700 #30 tablet 12/17/19 Tamsulosin HCl [Flomax -] 0.4 mg PO DAILY@0830 #30 cap.er.24h 12/17/19 Valsartan [Diovan] 80 mg PO DAILY #30 tablet 12/17/19 This patient is new to me today: No Emergency Visit: Yes ED Registration Date: 12/15/19 Care time: The patient presented to the Emergency Department on the above date and was hospitalized for further evaluation of their emergent condition. Critical Care patient: No - Discharge Referral Referred to [facility] Med [facility].C[facility] No
== END 2019-12-17 17:18 | disposition home or self-care (01) | DRG 313 ==
LOC: FER 07:03 → FM/S 10:18
PROVIDERS: ADMIT Internal Medicine; ATTEND Nurse Practitioner Acute Care
DX: R07.9 Chest pain, unspecified (principal); K83.1 Obstruction of bile duct; E87.1 Hypo-osmolality and hyponatremia; I10 Essential (primary) hypertension; R55 Syncope and collapse; F10.10 Alcohol abuse, uncomplicated; E80.6 Other disorders of bilirubin metabolism; E03.9 Hypothyroidism, unspecified; Z98.84 Bariatric surgery status; R00.0 Tachycardia, unspecified
CPT/HCPCS: 36415; 70450-TC; 71046-TC-FY; 71275-TC; 74177-TC; 74182-TC; 76705-TC; 80048; 80053; 80074; 80076; 80307; 81003; 81015; 82140; 82550; 82553; 82962; 82977; 83605; 83690; 83735; 83880; 84484; 85025; 85379; 85610; 85730; 86850; 86900; 86901; 87086; 93005; 99284-25; A9579; J7030